=== PATIENT | male | born 1935 | race African-American/Black ===

== ENCOUNTER 2017-04-07 17:59 | Emergency (ER) | payer MEDICARE ==
[2017-04-07 18:26] VITALS: BP 118/66
--- NOTE | 2017-04-07 18:54 | UC ---
Hip/Pelvis Pain - HPI Summary HPI Summary: This AM was c/o right hip pain when being turned this afternoon seemed very weak and vomited x 2 no dyspnea or CP reported hx CVA, not very verbal since then - History Of Current Complaint Chief Complaint: UCGeneralIllness Stated Complaint: VOMITING,HIP PAIN Time Seen by Provider: 04/07/17 18:35 Onset/Duration: Gradual Onset, Lasting Hours Timing: Constant Severity Initially: Mild Severity Currently: None Pain Intensity: 0 Pain Scale Used: 0-10 Numeric Character Of Pain: Unable To Describe Aggravating Factor(s): Other - appears to hurt when he roles on it Associated Signs And Symptoms: Positive: Other - weak/"out of it"/vomiting x x - Allergies/Home Medications Allergies/Adverse Reactions: Allergies Allergy/AdvReac Type Severity Reaction Status Date / Time No Known Allergies Allergy Verified 04/07/17 18:26 PMH/Surg Hx/FS Hx/Imm Hx Endocrine History: Diabetes Neurological History: CVA - Surgical History Surgical History: Yes Surgery Procedure, Year, and Place: BILATERAL CATARCTS [place] - Family History Known Family History: Positive: Hypertension - Social History Alcohol Use: None Substance Use Type: None Smoking Status (MU): Former Smoker Type: Cigarettes Amount Used/How Often: 1/2 PPD Length of Time of Smoking/Using Tobacco: 5 YEARS Have You Smoked in the Last Year: No When Did the Patient Quit Smoking/Using Tobacco: 1960s Review of Systems Constitutional: Negative Skin: Negative Eyes: Negative ENT: Negative Respiratory: Negative Cardiovascular: Negative Gastrointestinal: Vomiting Genitourinary: Negative Motor: Negative Neurovascular: Negative Musculoskeletal: Negative Neurological: Negative Psychological: Negative All Other Systems Reviewed And Are Negative: Yes Physical Exam Triage Information Reviewed: Yes Appearance: No Pain Distress, Well-Nourished Vital Signs: Initial Vital Signs Temp 96.9 F 04/07/17 18:23 Pulse 56 04/07/17 18:23 Resp 18 04/07/17 18:23 BP 118/66 04/07/17 18:23 Pulse Ox 96 04/07/17 18:23 Eyes: Positive: Conjunctiva Clear ENT: Negative: Nasal congestion, Nasal drainage, Muffled/hoarse voice Neck: Positive: No Lymphadenopathy Respiratory: Positive: Lungs clear, Normal breath sounds, No respiratory distress Cardiovascular: Positive: RRR, Bradycardia Abdomen Description: Positive: Nontender, No Organomegaly, Soft Musculoskeletal: Positive: Other: - no obvious hip deformity Neurological: Positive: Lethargic, Other: - lefleft facial droop-old. Negative : Muscle Tone Normal Skin Exam: Normal Diagnostics - EKG Cardiac Rate: Bradycardia Cardiac Rhythm: Other Rhythm: Old - inc RRR and LAHB Ectopy: None - flipped T's lat leads...new Hip Injury Course/Dx - Course Course Of Treatment: D/W Dr. Parker. To [facility] ED via EMS - Differential Dx/Diagnosis Provider Diagnoses: vomiting/fatigue. EKG changes Discharge - Discharge Plan Condition: Guarded Disposition: TRANS HIGHER LVL OF CARE FAC
[2017-04-07] MEDS ORDERED: Aspirin EC Low Dose* 81 MG TAB.EC PO ONE (19:17)
[2017-04-07] MEDS ORDERED: Aspirin Low Dose CHEW TAB* 81 MG PO ONE (19:31)
== END 2017-04-07 19:53 | disposition short-term general hospital (02) ==
LOC: UCEAST 17:59
DX: R11.10 Vomiting, unspecified (principal); R53.83 Other fatigue; R94.31 Abnormal electrocardiogram [ECG] [EKG]
CPT/HCPCS: 93005; 99213; A9270-GY; G0463

== ENCOUNTER 2017-04-07 20:09 | Emergency (ER) | payer MEDICARE ==
[2017-04-07] MEDS ORDERED: Ondansetron INJ* 2 MG/ML VIAL IV ONE (21:12)
[2017-04-07] MEDS ORDERED: NS 0.9% 1000 ML* 1,000 ML IV ONE (21:12)
[2017-04-07 21:31] LABS: Hematocrit 44 % (42-52); Hemoglobin 13.7 g/dl (14.0-18.0); Mean Corpuscular HGB Conc 31 g/dl (31-36); Mean Corpuscular Hemoglobin 23 pg (27-31); Mean Corpuscular Volume 73 fL (80-94); Mean Platelet Volume 9 um3 (7.4-10.4); Red Blood Count 6.04 10^6/ul (4.0-5.4); Red Cell Distribution Width 17 % (10.5-15); White Blood Count 8.5 10^3/ul (3.5-10.8)
[2017-04-07 21:35] LABS: Add Diff/Slide Review? Slide Review Added; Comments Flag Yes
[2017-04-07 21:46] LABS: Albumin 4.4 g/dL (3.2-5.2); BUN/Creatinine Ratio 13.3 (8-20); C Reactive Protein 4.96 mg/L (< 5.00); Calcium 9.8 mg/dL (8.6-10.3); EGFR African American 166.3 (>60); EGFR Non-African American 129.3 (>60); Globulin 3.9 g/dL (2-4); Magnesium 1.9 mg/dL (1.9-2.7); Total Bilirubin 0.4 mg/dL (0.2-1.0); Total Protein 8.3 g/dL (6.4-8.9)
[2017-04-07 21:48] LABS: Troponin I 0.01 ng/mL (<0.04)
[2017-04-07 22:02] LABS: Hypochromasia 1+; Microcytosis 1+
[2017-04-07 22:44] LABS: Urine Bacteria Absent (Absent); Urine Bilirubin Negative (Negative); Urine Glucose 1+(50 mg/dL) (Negative); Urine Nitrite Negative (Negative)
--- NOTE | 2017-04-08 00:26 | ED ---
Macho Gonzáles Alok, scribed for Julissa Gonzales MD on 04/07/17 at 2155 . Abdominal Pain/Male - HPI Summary HPI Summary: 81M presents to the ED sent her from [facility] for an episode of vomiting accompanied by diaphoresis while at home earlier today. Pt reportedly vomited a total of two times and c/o abd pain. Pt denies abd pain currently. Pt denies diarrhea. PMHx includes DM and dementia. Pt has h/o stroke with left sided weakeness and h/o shingles following stroke. Pt denies anti-coagulants. 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 Negative: Diarrhea - Allergies/Home Medications Allergies/Adverse Reactions: Allergies Allergy/AdvReac Type Severity Reaction Status Date / Time No Known Allergies Allergy Verified 04/07/17 18:26 PMH/Surg Hx/FS Hx/Imm Hx Endocrine/Hematology History: Reports: Hx Diabetes - type 2 dm Denies: Hx Thyroid Disease Cardiovascular History: Reports: Hx Hypertension Respiratory History: Denies: Hx Asthma, Hx Chronic Obstructive Pulmonary Disease (COPD) GI History: Denies: Hx Ulcer Sensory History: Reports: Hx Cataracts - BILATERAL, Hx Contacts or Glasses - GLASSES, Hx Hearing Aid - ONE EAR Opthamlomology History: Reports: Hx Cataracts - BILATERAL, Hx Contacts or Glasses - GLASSES Neurological History: Reports: Hx CVA - Surgical History Surgery Procedure, Year, and Place: BILATERAL CATARCTS [place] Hx Anesthesia Reactions: No Infectious Disease History: No Infectious Disease History: Reports: Hx Shingles - 2014 Denies: Hx Clostridium Difficile, Hx Hepatitis, Hx Human Immunodeficiency Virus (HIV), Hx of Known/Suspected MRSA, Hx Tuberculosis, Hx Known/Suspected VRE , Hx Known/Suspected VRSA, History Other Infectious Disease, Traveled Outside the [place] in Last 30 Days - Family History Known Family History: Positive: Hypertension - Social History Occupation: Retired Lives: With Family Alcohol Use: None Hx Substance Use: No Substance Use Type: Reports: None Hx Tobacco Use: Yes Smoking Status (MU): Former Smoker Type: Cigarettes Amount Used/How Often: 1/2 PPD Length of Time of Smoking/Using Tobacco: 5 YEARS Have You Smoked in the Last Year: No Review of Systems Positive: Skin Diaphoresis. Negative: Fever Positive: Abdominal Pain, Vomiting, Nausea. Negative: Diarrhea All Other Systems Reviewed And Are Negative: Yes Physical Exam Triage Information Reviewed: Yes Vital Signs On Initial Exam: Initial Vitals Temp Pulse Resp BP Pulse Ox 97.6 F 53 14 187/85 97 04/07/17 20:18 04/07/17 20:18 04/07/17 20:18 04/07/17 20:18 04/07/17 20:18 Vital Signs Reviewed: Yes Appearance: Positive: Well-Appearing, No Pain Distress Skin: Positive: Warm, Skin Color Reflects Adequate Perfusion, Dry Eyes: Positive: EOMI, YONI ENT: Positive: Pharynx normal, TMs normal Neck: Positive: Supple, Nontender Respiratory/Lung Sounds: Positive: Clear to Auscultation, Breath Sounds Present. Negative: Rales, Rhonchi, Wheezes Cardiovascular: Positive: RRR, Other - no gallop. Negative: Murmur, Rub Abdomen Description: Positive: Nontender, Soft, Other: - no rebound. Negative: Distended, Guarding Bowel Sounds: Positive: Present Musculoskeletal: Positive: Strength/ROM Intact. Negative: Edema Left, Edema Right Neurological: Positive: Sensory/Motor Intact, Alert, Oriented to Person Place, Time, CN Intact II-III Psychiatric: Positive: Affect/Mood Appropriate - Chappells Coma Scale Coma Scale Total: 14 Diagnostics - Vital Signs Vital Signs Temp Pulse Resp BP Pulse Ox 04/07/17 20:18 97.6 F 53 14 187/85 97 - Laboratory Lab Results: Lab Results 04/07/17 Range/Units 21:25 WBC 8.5 (3.5-10.8) 10^3/ul RBC 6.04 H (4.0-5.4) 10^6/ul Hgb 13.7 L (14.0-18.0) g/dl Hct 44 (42-52) % MCV 73 L (80-94) fL MCH 23 L (27-31) pg MCHC 31 (31-36) g/dl RDW 17 H (10.5-15) % Plt Count 205 (150-450) 10^3/ul MPV 9 (7.4-10.4) um3 Neut % (Auto) 73.8 (38-83) % Lymph % (Auto) 21.2 L (25-47) % Graves % (Auto) 3.7 (1-9) % Eos % (Auto) 0.7 (0-6) % Baso % (Auto) 0.6 (0-2) % Absolute Neuts (auto) 6.3 (1.5-7.7) 10^3/ul Absolute Lymphs (auto) 1.8 (1.0-4.8) 10^3/ul Absolute Monos (auto) 0.3 (0-0.8) 10^3/ul Absolute Eos (auto) 0.1 (0-0.6) 10^3/ul Absolute Basos (auto) 0 (0-0.2) 10^3/ul Absolute Nucleated RBC 0.01 10^3/ul Nucleated RBC % 0.1 Result Diagrams: 04/07/17 21:25 04/07/17 21:25 Lab Statement: Any lab studies that have been ordered have been reviewed, and results considered in the medical decision making process. - EKG 1858 Cardiac Rate: Other Rate - 55 bpm EKG Rhythm: Atrial Flutter ST Segment: Non-Specific EKG Interpretation: LVH. Inferior Q-waves. 214 Cardiac Rate: Other Rate - 58 bpm EKG Interpretation: inverted lateral t-waves EKG Comparison: No Significant Change - From 03/07/16 Abdominal Pain Fem Course/Dx - Course Course Of Treatment: 81 yo male with episode of n/v at 5pm thurs night. He did complain of abd pain and does have dementia per family. He was sent from the [facility] after an ekg showed lateral twave inversions. He had two trop done here and both were neg and pt denies chest pain. He also denied abdominal pain, discussion was had with family (son appears to be the person in charge of decision making) about getting a ct abd given his age and they felt this was not necessary. Labs are normal, urine which was a cath urine shows some blood, but no bacteria and will be cultured. Pt has not vomited here and has not had any complaints and is resting comfortably. Family understands to return for any changes or return of symptoms - Diagnoses Provider Diagnoses: Nausea & vomiting Discharge - Discharge Plan Condition: Stable Disposition: HOME The documentation as recorded by the Macho cronin Alok accurately reflects the service I personally performed and the decisions made by me, Julissa Gonzales MD.
[2017-04-08 00:41] VITALS: BP 165/77
== END 2017-04-08 00:53 | disposition home or self-care (01) ==
LOC: ED 20:09
DX: R11.2 Nausea with vomiting, unspecified (principal); R61 Generalized hyperhidrosis; I48.92 Unspecified atrial flutter; E11.9 Type 2 diabetes mellitus without complications; I10 Essential (primary) hypertension; Z86.73 Personal history of transient ischemic attack (TIA), and cerebral infarction without residual deficits; Z98.42 Cataract extraction status, left eye; Z98.41 Cataract extraction status, right eye; Z87.891 Personal history of nicotine dependence
CPT/HCPCS: 36415; 51701; 80053; 81003; 81015; 83690; 83735; 84484; 85025; 86140; 93005; 96361; 96374; 99283; J2405

== ENCOUNTER 2017-09-18 09:44 | Emergency (ER) | payer MEDICARE ==
[2017-09-18 10:36] VITALS: BP 121/60
--- NOTE | 2017-09-18 11:22 | RAD ---
INDICATION: "Swollen hip" COMPARISON: None TECHNIQUE: 3 views of the left hip were obtained. FINDINGS: The visualized bones of the left hip are well-corticated and properly aligned. Degenerative changes of the bilateral hips seen on the AP view of the pelvis include joint space narrowing, mild sclerotic change of the acetabular roof and marginal osteophyte formation. There is no radiographic evidence of acute fracture or dislocation. IMPRESSION: Degenerative changes of the hips as described above without radiographically apparent fracture or dislocation. If the patient's symptoms persist follow-up imaging is recommended.
--- NOTE | 2017-09-18 12:01 | UC ---
Dorie Gonzáles Jason, scribed for Krystina Edwards MD on 09/18/17 at 1134 . Hip/Pelvis Pain - HPI Summary HPI Summary: This patient is a 82 year old M presenting to [facility] [place] by family with a chief complaint of left hip swelling since 1 week ago. The patients son states the patient has been complaining about left hip pain about 1 week ago and has since then stopped walking. The patient rates the pain 0/10 in severity. Symptoms aggravated by nothing. Symptoms alleviated by nothing. Patients son reports that the patient slid to the ground from a sitting position 1 week ago. Patients son denies any physical trauma, cough, and fever. History of current complaint unobtainable from patient due to Dementia that has progressed since 2011. The patients son states that it has been 4 years since the patient has been able to have a coherent conversation. Additionally, the patient lives with his and son and daughter. . - History Of Current Complaint Chief Complaint: UCLowerExtremity Stated Complaint: SWOLLEN HIP Time Seen by Provider: 09/18/17 11:19 Hx Obtained From: Family/House Parent - Son Hx From Patient Unobtainable Due To: Dementia Onset/Duration: Sudden Onset, Lasting Weeks - 1 week ago, Still Present Pain Intensity: 0 Pain Scale Used: 0-10 Numeric Aggravating Factor(s): Nothing Alleviating Factor(s): Nothing Associated Signs And Symptoms: Positive: Other - Patients father denies any physical trauma, cough, and fever. - Allergies/Home Medications Allergies/Adverse Reactions: Allergies Allergy/AdvReac Type Severity Reaction Status Date / Time No Known Allergies Allergy Verified 04/07/17 18:26 Home Medications: Home Medications Glyburid/Metformin 5/500(NF) [Glucovance 5/500 (NF)] 2 tab PO BID 09/18/17 [ History Confirmed 09/18/17] PMH/Surg Hx/FS Hx/Imm Hx Previously Healthy: No Endocrine History: Diabetes Neurological History: Dementia - progressing since 2011 - Surgical History Surgical History: Yes Surgery Procedure, Year, and Place: BILATERAL CATARCTS [place] - Family History Known Family History: Positive: Hypertension Negative: Blood Disorder - Social History Occupation: Retired Lives: With Family Alcohol Use: None Substance Use Type: None Smoking Status (MU): Former Smoker Type: Cigarettes Amount Used/How Often: 1/2 PPD Length of Time of Smoking/Using Tobacco: 5 YEARS Have You Smoked in the Last Year: No When Did the Patient Quit Smoking/Using Tobacco: 1960s Review of Systems Constitutional: Negative - There are no symstemic symptoms suggestive of infection, and no apparent sources of pain aside from the left hip., Other - eating and drinking have decrased, but family is managing to maintain hydration. Skin: Negative Eyes: Negative ENT: Negative Respiratory: Negative - cough Cardiovascular: Negative Gastrointestinal: Negative Genitourinary: Other - incontinent of urine and stool for several years. Motor: Negative Neurovascular: Negative Musculoskeletal: Negative - physical trauma, Arthralgia Neurological: Negative Psychological: Negative All Other Systems Reviewed And Are Negative: Yes Physical Exam Triage Information Reviewed: Yes Completion Of Physical Exam Limited Due To: Dementia - no verbal response. Seated comfortably in a wheelchair, no apparent discomfort. Required 2 person transfer to get to stretcher, without crying out or suggestion of focal pain. Appearance: Ill-Appearing - Head flexed forward, no verbal response to questions. Vital Signs: Initial Vital Signs Temp 99.5 F 09/18/17 10:14 Pulse 60 09/18/17 10:14 Resp 18 09/18/17 10:14 BP 121/60 09/18/17 10:14 Pulse Ox 98 09/18/17 10:14 Eye Exam: Normal ENT: Positive: TMs normal, Other - unwilling to have oral cavity checked. Neck: Positive: Nontender, No Lymphadenopathy Respiratory: Positive: Lungs clear, Normal breath sounds Cardiovascular: Positive: RRR, No Murmur Abdomen Description: Positive: Nontender, No Organomegaly, Soft Musculoskeletal Exam: Other - diffuse firm swelling over the greater trochanter. Not obviously painful Musculoskeletal: Positive: ROM Intact - in hips--can passively flex without pain. Neurological: Positive: Alert, Fatigued Psychological Exam: Other - moderately severe dementia. Skin Exam: Normal, Other - skin care is good. No edema, no decubiti Diagnostics - Laboratory Diagnostic Studies Completed/Ordered: Per , degenerative change noted in hips. Dr. Baker reads xray as mild degenerative change without fracture - Radiology hip/pelvis x-ray Radiology Interpretation Completed By: Radiologist - degenerative changes of the hips as described above without radiographically apparent fracture or dislocation. If the patient's symptoms persist follow-up imaging is recommended. ED physician has reviewed this radiology report and agrees. Hip Injury Course/Dx - Course Course Of Treatment: supportive care needed. Discussed change in status and family is seeking to add in home care, not seeking respite or placement at this time. Discussed needs and services available. - Differential Dx/Diagnosis Differential Diagnosis/HQI/PQRI: Fracture, Hematoma, Other - infection Provider Diagnoses: progressive dementia. hematoma left hip. Discharge - Discharge Plan Condition: Stable Disposition: HOME Patient Education Materials: Hematoma (ED), Dementia (ED) Referrals: Jimmie Prince MD [Primary Care Provider] - Additional Instructions: There is no evidence of hip fracture, but it is possible that last weekend's injury caused some bleeding around the left hip, called a hematoma. There are no obvious causes for the change in status, but at this time you do need to have more rexources at home. Please contact Dr. Prince's office; in order to establish services a face-to- lface interview will be needed with your primary care physician. Contact [facility] services and the [facility] in order to access services and devices which you might need. You do have a wheelchair coming today. The documentation as recorded by the Dorie cronin Jason accurately reflects the service I personally performed and the decisions made by me, Krystina Edwards MD.
== END 2017-09-18 12:15 | disposition home or self-care (01) ==
LOC: UCEAST 09:44
DX: S70.01XA Contusion of right hip, initial encounter (principal); X58.XXXD Exposure to other specified factors, subsequent encounter; Y92.9 Unspecified place or not applicable; F03.90 Unspecified dementia, unspecified severity, without behavioral disturbance, psychotic disturbance, mood disturbance, and anxiety; E11.9 Type 2 diabetes mellitus without complications; Z79.84 Long term (current) use of oral hypoglycemic drugs; Z87.891 Personal history of nicotine dependence; M16.12 Unilateral primary osteoarthritis, left hip
CPT/HCPCS: 99211; G0463